=== PATIENT | female | born 1955 | race Asian ===

== ENCOUNTER 2019-09-03 16:16 | Inpatient (IN) | payer OTHER ==
[~2019-09-03] VITALS: Ht 152.4 cm; Wt 66.1 kg
--- NOTE | 2019-09-03 16:37 | NUR ---
PT TO ROOM AT THIS TIME. CARLOS
--- NOTE | 2019-09-03 16:47 | NUR ---
64 Y/O FEMALE PRESENTS TO ED WITH C/O HEADACHE. PER DAUGHTER "HER HEADACHE IS ONT OP OF HER HEAD.SHE OFTEN WOULD GET HEADACHES ONCE OR TWICE A MONTH. THEN IT GOT WORSE. THIS IS THE FIRST SINCE SHE'[place] BEEN IN THE [place]. SHE'S BEEN HERE FOR A WHILE. SHE'S NAUSEOUS BECAUSE OF THE HEADACHE. SHE SAID SOMETIMES WHEN SHE HAS A BM THERE IS A LITTLE BLOOD AND CAN GET PAINFUL IN HER STOMACH." NO C/O V/D, TRAUMA, SYNCOPE, CP, SOB. FAMILY BEDSIDE. PT PLACED ON CONT PULSE OX,NIBP.
[2019-09-03] MEDS ORDERED: DIPHENHYDRAMINE 50 MG/ML, 1ML IVPush ONE (17:00)
[2019-09-03] MEDS ORDERED: METOCLOPRAMIDE 5 MG/ML, 2ML IVPush ONE (17:00)
[2019-09-03] MEDS ORDERED: SODIUM CHLORIDE 0.9% 1,000ML IVBOLUS ONE (17:00)
--- NOTE | 2019-09-03 17:06 | NUR ---
PIV ESTABLISHED. PT TOLERATED WITH NO COMPLICATIONS. LABS OBTAINED. XRAY BEDSIDE.
[2019-09-03] MEDS ORDERED: DIPHENHYDRAMINE 50 MG/ML, 1ML ONE (17:14)
[2019-09-03] MEDS ORDERED: METOCLOPRAMIDE 5 MG/ML, 2ML ONE (17:14)
--- NOTE | 2019-09-03 17:23 | NUR ---
MEDICATIONS ADMINISTERED PER ORDER. NADN FAMILY BEDSIDE. NO NEEDS REQUESTED AT THIS TIME. PT GIVEN TWO WARM BLANKETS.
[2019-09-03 17:31] LABS: ALANINE AMINOTRANSFERASE 16 U/L (12-78); ALBUMIN 3.2 g/dL (3.4-5.0); ANION GAP 9 mmol/L (5-15); CALCIUM 8.6 mg/dL (8.5-10.1); CHLORIDE 105 mmol/L (98-107); CREATININE 1.61 mg/dL (0.55-1.02)
[2019-09-03 17:35] LABS: MEAN CORPUSCULAR HEMOGLOBIN 28.9 pg (27.0-34.8); MEAN CORPUSCULAR HGB CONC 32.6 g/dL (32.4-35.8); MEAN CORPUSCULAR VOLUME 88.4 fL (80-100); MEAN PLATELET VOLUME 7.9 fL (7.4-10.4); PLATELET COUNT 237 x10^3/uL (130-400); RED BLOOD COUNT 4.72 x10^6/uL (3.82-5.3); RED CELL DISTRIBUTION WIDTH 13.2 % (9.6-15.2)
[2019-09-03 17:36] LABS: ALKALINE PHOSPHATASE 102 U/L (45-117); BILIRUBIN,TOTAL 0.7 mg/dL (0.2-1.0); TOTAL PROTEIN 8.9 g/dL (6.4-8.2); TROPONIN I < 0.015 ng/mL (0.000-0.045)
[2019-09-03 17:51] LABS: MICROSCOPIC INDICATED
[2019-09-03 17:52] LABS: CULTURE INDICATED? YES
--- NOTE | 2019-09-03 17:59 | NUR ---
PT TO IMAGING.
--- NOTE | 2019-09-03 18:07 | NUR ---
PT BACK FROM IMAGING.
[2019-09-03 18:13] LABS: BASOPHILS % (AUTO) 0 % (0-1); EOSINOPHILS % (AUTO) 0 % (1-7); LYMPHOCYTES # (AUTO) 1.12 x10^3/uL (1-3.4); LYMPHOCYTES % (AUTO) 5 % (22-44); MD SCAN; MONOCYTES # (AUTO) 1.49 x10^3/uL (0.2-0.8); MONOCYTES % (AUTO) 6 % (2-9); NEUTROPHILS # (AUTO) 20.97 x10^3/uL (1.8-6.8); NEUTROPHILS % (AUTO) 89 % (42-75)
[2019-09-03] MEDS ORDERED: CEFTRIAXONE PMX 2GM/50ML 50 ML IV SCH (18:30)
--- NOTE | 2019-09-03 18:42 | NUR ---
BEDSIDE REPORT TO CEE PULIDO.
[2019-09-03] MEDS ORDERED: CEFTRIAXONE PMX 2GM/50ML 50 ML ONE (18:44)
--- NOTE | 2019-09-03 18:46 | NUR ---
REPORT RECEIVED FROM KHURRAM MIKE. ASSUMING CARE AT THIS TIME.
--- NOTE | 2019-09-03 19:05 | NUR ---
LAB AT BEDSIDE FOR BLOOD CULTURES.
--- NOTE | 2019-09-03 19:07 | NUR ---
REPORT GIVEN TO ALEXANDREA MIKE.
--- NOTE | 2019-09-03 19:14 | NUR ---
IV ABS STARTED. BLOOD CULTURES ALREADY COLLECTED.
[2019-09-03 19:58] VITALS: BP 152/74
[2019-09-03] MEDS ORDERED: BISACODYL 10 MG SUPP PR PRN (20:00)
[2019-09-03] MEDS ORDERED: HEPARIN 5,000 UNITS/ML, 1ML SQ SCH (20:00)
[2019-09-03] MEDS ORDERED: ONDANSETRON 2MG/ML, 2ML IVPush PRN (20:00)
[2019-09-03] MEDS: ACETAMINOPHEN 325 MG TABLET PO PRN (20:24)
[2019-09-03] MEDS: NS + 20MEQ KCL 1,000 ML IV SCH (20:24)
[2019-09-04 00:14] VITALS: BP 109/68
[2019-09-04] MEDS: NS + 20MEQ KCL 1,000 ML IV SCH ×2 (04:55→12:00)
[2019-09-04] MEDS: ACETAMINOPHEN 325 MG TABLET PO PRN ×4 (05:29→20:17)
[2019-09-04 06:06] LABS: MEAN CORPUSCULAR HEMOGLOBIN 28.7 pg (27.0-34.8); MEAN CORPUSCULAR HGB CONC 32.3 g/dL (32.4-35.8); MEAN CORPUSCULAR VOLUME 88.7 fL (80-100); MEAN PLATELET VOLUME 7.7 fL (7.4-10.4); PLATELET COUNT 203 x10^3/uL (130-400); RED BLOOD COUNT 4.79 x10^6/uL (3.82-5.3); RED CELL DISTRIBUTION WIDTH 13.6 % (9.6-15.2)
[2019-09-04 06:16] LABS: CHLORIDE 111 mmol/L (98-107)
[2019-09-04 06:24] LABS: ALANINE AMINOTRANSFERASE 14 U/L (12-78); ALBUMIN 2.8 g/dL (3.4-5.0); ALKALINE PHOSPHATASE 96 U/L (45-117); ANION GAP 10 mmol/L (5-15); BILIRUBIN,TOTAL 0.8 mg/dL (0.2-1.0); CALCIUM 8.8 mg/dL (8.5-10.1); CREATININE 1.35 mg/dL (0.55-1.02); TOTAL PROTEIN 8.7 g/dL (6.4-8.2)
[2019-09-04 06:37] LABS: BASOPHILS # (AUTO) 0.03 x10^3/uL (0-0.1); BASOPHILS % (AUTO) 0 % (0-1); EOSINOPHILS # (AUTO) 0.16 x10^3/uL (0-0.4); EOSINOPHILS % (AUTO) 1 % (1-7); LYMPHOCYTES # (AUTO) 1.79 x10^3/uL (1-3.4); LYMPHOCYTES % (AUTO) 8 % (22-44); MD SCAN; MONOCYTES # (AUTO) 1.62 x10^3/uL (0.2-0.8); MONOCYTES % (AUTO) 8 % (2-9); NEUTROPHILS # (AUTO) 17.92 x10^3/uL (1.8-6.8); NEUTROPHILS % (AUTO) 83 % (42-75)
[2019-09-04 07:39] VITALS: BP 114/66
[2019-09-04 13:05] VITALS: BP 108/74
[2019-09-04] MEDS: SODIUM CHLORIDE 0.9% 1,000 ML IV SCH (14:08)
[2019-09-04 19:38] VITALS: BP 145/78
[2019-09-04] MEDS: CEFTRIAXONE PMX 1GM/50ML 50 ML IV SCH (20:17)
[2019-09-05] MEDS: SODIUM CHLORIDE 0.9% 1,000 ML IV SCH ×3 (00:47→22:56)
[2019-09-05] MEDS: ACETAMINOPHEN 325 MG TABLET PO PRN ×4 (02:26→21:14)
[2019-09-05 03:57] VITALS: BP 130/79
[2019-09-05 05:43] LABS: BASOPHILS # (AUTO) 0.03 x10^3/uL (0-0.1); BASOPHILS % (AUTO) 0 % (0-1); EOSINOPHILS # (AUTO) 0.13 x10^3/uL (0-0.4); EOSINOPHILS % (AUTO) 1 % (1-7); LYMPHOCYTES # (AUTO) 1.76 x10^3/uL (1-3.4); LYMPHOCYTES % (AUTO) 13 % (22-44); MD NO; MEAN CORPUSCULAR HEMOGLOBIN 28.6 pg (27.0-34.8); MEAN CORPUSCULAR HGB CONC 31.9 g/dL (32.4-35.8); MEAN CORPUSCULAR VOLUME 89.6 fL (80-100); MONOCYTES # (AUTO) 1.09 x10^3/uL (0.2-0.8); MONOCYTES % (AUTO) 8 % (2-9); NEUTROPHILS # (AUTO) 10.16 x10^3/uL (1.8-6.8); NEUTROPHILS % (AUTO) 77 % (42-75); PLATELET COUNT 212 x10^3/uL (130-400); RED BLOOD COUNT 3.67 x10^6/uL (3.82-5.3); RED CELL DISTRIBUTION WIDTH 13.4 % (9.6-15.2)
[2019-09-05 05:53] LABS: ALANINE AMINOTRANSFERASE 15 U/L (12-78); ALBUMIN 2.2 g/dL (3.4-5.0); ANION GAP 6 mmol/L (5-15); CALCIUM 7.8 mg/dL (8.5-10.1); CHLORIDE 115 mmol/L (98-107); CREATININE 0.97 mg/dL (0.55-1.02)
[2019-09-05 05:55] LABS: ALKALINE PHOSPHATASE 85 U/L (45-117); BILIRUBIN,TOTAL 0.3 mg/dL (0.2-1.0); TOTAL PROTEIN 6.6 g/dL (6.4-8.2)
[2019-09-05 07:17] VITALS: BP 144/80
[2019-09-05] MEDS: ENOXAPARIN 40 MG/0.4 ML SQ SCH (15:14)
[2019-09-05 15:50] VITALS: BP 120/72
[2019-09-05 19:36] VITALS: BP 143/83
[2019-09-05] MEDS: CEFTRIAXONE PMX 1GM/50ML 50 ML IV SCH (19:47)
[2019-09-06 03:55] VITALS: BP 152/85
[2019-09-06 04:56] LABS: BASOPHILS # (AUTO) 0.02 x10^3/uL (0-0.1); BASOPHILS % (AUTO) 0 % (0-1); CALCIUM 7.8 mg/dL (8.5-10.1); CHLORIDE 114 mmol/L (98-107); EOSINOPHILS # (AUTO) 0.13 x10^3/uL (0-0.4); EOSINOPHILS % (AUTO) 2 % (1-7); LYMPHOCYTES # (AUTO) 1.79 x10^3/uL (1-3.4); LYMPHOCYTES % (AUTO) 21 % (22-44); MD NO; MEAN CORPUSCULAR HEMOGLOBIN 28.6 pg (27.0-34.8); MEAN CORPUSCULAR HGB CONC 32.6 g/dL (32.4-35.8); MEAN CORPUSCULAR VOLUME 87.7 fL (80-100); MEAN PLATELET VOLUME 7.6 fL (7.4-10.4); MONOCYTES % (AUTO) 11 % (2-9); NEUTROPHILS # (AUTO) 5.81 x10^3/uL (1.8-6.8); NEUTROPHILS % (AUTO) 66 % (42-75); PLATELET COUNT 257 x10^3/uL (130-400); RED BLOOD COUNT 3.85 x10^6/uL (3.82-5.3); RED CELL DISTRIBUTION WIDTH 13.5 % (9.6-15.2)
[2019-09-06 05:02] LABS: ALANINE AMINOTRANSFERASE 14 U/L (12-78); ALBUMIN 2.2 g/dL (3.4-5.0); ALKALINE PHOSPHATASE 80 U/L (45-117); ANION GAP 7 mmol/L (5-15); BILIRUBIN,TOTAL 0.2 mg/dL (0.2-1.0); TOTAL PROTEIN 6.7 g/dL (6.4-8.2)
[2019-09-06 06:37] VITALS: BP 148/78
[2019-09-06] MEDS: SODIUM CHLORIDE 0.9% 1,000 ML IV SCH ×2 (07:27→17:28)
[2019-09-06] MEDS: ACETAMINOPHEN 325 MG TABLET PO PRN (07:27)
[2019-09-06 12:34] VITALS: BP 130/76
[2019-09-06] MEDS: ENOXAPARIN 40 MG/0.4 ML SQ SCH (15:12)
[2019-09-06 19:49] VITALS: BP 168/98
[2019-09-06] MEDS: LACTOBACILLUS CHEW TABLET PO SCH (20:06)
[2019-09-06] MEDS: CEFTRIAXONE PMX 1GM/50ML 50 ML IV SCH (20:27)
[2019-09-07 03:34] VITALS: BP 138/78
[2019-09-07 05:28] LABS: BASOPHILS # (AUTO) 0.03 x10^3/uL (0-0.1); BASOPHILS % (AUTO) 0 % (0-1); EOSINOPHILS % (AUTO) 1 % (1-7); LYMPHOCYTES # (AUTO) 2.18 x10^3/uL (1-3.4); LYMPHOCYTES % (AUTO) 28 % (22-44); MD NO; MEAN CORPUSCULAR HEMOGLOBIN 28.3 pg (27.0-34.8); MEAN CORPUSCULAR HGB CONC 32.1 g/dL (32.4-35.8); MEAN CORPUSCULAR VOLUME 88.4 fL (80-100); MEAN PLATELET VOLUME 7.9 fL (7.4-10.4); MONOCYTES # (AUTO) 0.89 x10^3/uL (0.2-0.8); MONOCYTES % (AUTO) 12 % (2-9); NEUTROPHILS # (AUTO) 4.54 x10^3/uL (1.8-6.8); NEUTROPHILS % (AUTO) 59 % (42-75); PLATELET COUNT 255 x10^3/uL (130-400); RED BLOOD COUNT 3.69 x10^6/uL (3.82-5.3); RED CELL DISTRIBUTION WIDTH 13.3 % (9.6-15.2)
[2019-09-07 05:38] LABS: ANION GAP 6 mmol/L (5-15); CALCIUM 8.1 mg/dL (8.5-10.1); CHLORIDE 115 mmol/L (98-107); CREATININE 0.92 mg/dL (0.55-1.02)
[2019-09-07] MEDS: SODIUM CHLORIDE 0.9% 1,000 ML IV SCH (05:42)
[2019-09-07 07:14] VITALS: BP 143/82
[2019-09-07] MEDS: ACETAMINOPHEN 325 MG TABLET PO PRN ×2 (07:58→18:06)
[2019-09-07] MEDS: LACTOBACILLUS CHEW TABLET PO SCH ×3 (07:58→19:48)
[2019-09-07 13:07] VITALS: BP 128/79
[2019-09-07] MEDS: ENOXAPARIN 40 MG/0.4 ML SQ SCH (15:44)
[2019-09-07 19:10] VITALS: BP 174/82
[2019-09-07] MEDS: CEFTRIAXONE PMX 1GM/50ML 50 ML IV SCH (19:48)
[2019-09-07 19:54] VITALS: BP 156/71
[2019-09-07] MEDS ORDERED: OXYcodone IR 5MG TABLET PO PRN (20:30)
[2019-09-08 02:11] VITALS: BP 165/89
[2019-09-08 07:48] VITALS: BP 160/90
[2019-09-08] MEDS: LACTOBACILLUS CHEW TABLET PO SCH ×3 (08:05→20:17)
[2019-09-08 13:00] VITALS: BP 143/85
[2019-09-08] MEDS: ENOXAPARIN 40 MG/0.4 ML SQ SCH (15:14)
[2019-09-08 19:47] VITALS: BP 145/81
[2019-09-08] MEDS: CEFTRIAXONE PMX 1GM/50ML 50 ML IV SCH (20:17)
[2019-09-09 01:10] VITALS: BP 139/80
[2019-09-09 05:23] LABS: CHLORIDE 111 mmol/L (98-107)
[2019-09-09 05:27] LABS: BASOPHILS # (AUTO) 0.03 x10^3/uL (0-0.1); BASOPHILS % (AUTO) 0 % (0-1); EOSINOPHILS # (AUTO) 0.08 x10^3/uL (0-0.4); EOSINOPHILS % (AUTO) 1 % (1-7); LYMPHOCYTES # (AUTO) 2.16 x10^3/uL (1-3.4); LYMPHOCYTES % (AUTO) 27 % (22-44); MD NO; MEAN CORPUSCULAR HEMOGLOBIN 28.3 pg (27.0-34.8); MEAN CORPUSCULAR HGB CONC 32.6 g/dL (32.4-35.8); MEAN CORPUSCULAR VOLUME 86.8 fL (80-100); MEAN PLATELET VOLUME 7.4 fL (7.4-10.4); MONOCYTES # (AUTO) 0.89 x10^3/uL (0.2-0.8); MONOCYTES % (AUTO) 11 % (2-9); NEUTROPHILS # (AUTO) 4.72 x10^3/uL (1.8-6.8); NEUTROPHILS % (AUTO) 60 % (42-75); PLATELET COUNT 318 x10^3/uL (130-400); RED BLOOD COUNT 4.04 x10^6/uL (3.82-5.3); RED CELL DISTRIBUTION WIDTH 13.1 % (9.6-15.2)
[2019-09-09 05:33] LABS: ANION GAP 7 mmol/L (5-15); CALCIUM 8.8 mg/dL (8.5-10.1); CREATININE 1.07 mg/dL (0.55-1.02)
[2019-09-09 07:24] VITALS: BP 148/81
[2019-09-09] MEDS ORDERED: CEFTRIAXONE PMX 1GM/50ML 50 ML IV SCH (09:00)
[2019-09-09] MEDS ORDERED: POTASSIUM CHLORIDE 20 MEQ TAB.ER.PRT PO ONE (09:00)
[2019-09-09] MEDS: LACTOBACILLUS CHEW TABLET PO SCH ×2 (09:53→16:00)
[2019-09-09 12:32] VITALS: BP 147/81
[2019-09-09] MEDS ORDERED: ACID1TAB7 PO (14:16)
[2019-09-09] MEDS ORDERED: LEVO500T47 PO (14:16)
[2019-09-09] MEDS: ENOXAPARIN 40 MG/0.4 ML SQ SCH (15:00)
[2019-09-09] MEDS ORDERED: FLU VAC QS 19-20(4YR UP)CEL/PF 0.5 ML IM-VACC ONE (16:00)
== END 2019-09-09 17:05 | disposition home or self-care (01) | DRG 871 ==
LOC: ED 17:49 → EDIP 18:39 → 3N 19:52 → DCLOUNGE 09-09 16:54
PROVIDERS: ADMIT Internal Medicine; ATTEND Hospitalist
DX: A41.50 Gram-negative sepsis, unspecified (principal); N17.0 Acute kidney failure with tubular necrosis; N10 Acute pyelonephritis; B96.20 Unspecified Escherichia coli [E. coli] as the cause of diseases classified elsewhere; D32.0 Benign neoplasm of cerebral meninges; D63.8 Anemia in other chronic diseases classified elsewhere; E87.6 Hypokalemia; G43.909 Migraine, unspecified, not intractable, without status migrainosus; Z80.8 Family history of malignant neoplasm of other organs or systems; Z83.3 Family history of diabetes mellitus
CPT/HCPCS: 36415; 70450; 71045; 74176; 74181; 80048; 80053; 81001; 83605; 83735; 84100; 84145; 84484; 85025; 87040; 87077; 87086; 87186; 90674; 93005; 93970; 96360; 96374; 96375; 99285; G0378; J0696; J1650; J3480; J1200; J2765; J7030